=== PATIENT | male | born 1950 | race Caucasian/White ===

== ENCOUNTER 2016-03-01 16:21 | Inpatient (IN) | payer OTHER ==
[~2016-03-01] VITALS: Ht 182.9 cm; Wt 116.5 kg
[2016-03-01 16:57] LABS: BASOPHIL COUNT 0.1 K/uL (0-0.1); EOSINOPHIL (%) 1.9 % (0-5); EOSINOPHIL COUNT 0.3 K/uL (0-0.3); HEMATOCRIT 44.1 % (38.0-50.0); IMMATURE GRANULOCYTE (%) 0.2 % (0.0-0.7); IMMATURE GRANULOCYTE COUNT 0.3 K/uL; LYMPHOCYTE COUNT 1.6 K/uL (1.0-2.8); MCHC 34.7 G/DL (30.0-36.0); MCV 86.5 FL (86-99); MEAN PLAT.VOLUME 8.8 uM^3 (9.0-12.4); MONOCYTE (%) 7.4 % (3-12); NEUTROPHIL COUNT 10.5 K/uL (1.8-6.4); PLATELET COUNT 273 K/uL (156-360); RBC DIS.WIDTH-CV 13.2 % (11.8-14.6); WHITE BLOOD COUNT 13.4 K/uL (4.1-10.2)
[2016-03-01 17:09] LABS: CHLORIDE 99 mEq/L (99-109); POTASSIUM 4.6 mEq/L (3.7-5.4); SODIUM 135 mEq/L (136-147)
[2016-03-01 17:12] LABS: GLUCOSE 310 mg/dL (70-99)
[2016-03-01 17:13] LABS: ANION GAP 12 MEQ/L (2-14)
[2016-03-01 17:14] LABS: TOTAL BILIRUBIN 0.5 mg/dL (0.0-1.0)
[2016-03-01 17:15] LABS: ALKALINE PHOSPHATASE 109 IU/L (3-129); GFR ESTIMATE (CALCULATED) > 59 mL/min/
[2016-03-01 17:16] LABS: UREA NITROGEN (BUN) 10 mg/dL (9-23)
[2016-03-01] MEDS ORDERED: NEOSPORIN EYE D10 ML RIGHT EYE (18:39)
[2016-03-01] MEDS ORDERED: AMOXICILLIN500 MG PO (18:40)
[2016-03-01] MEDS ORDERED: MUCUS RELIEF200 MG PO (18:40)
[2016-03-01] MEDS ORDERED: SIMVASTATIN40 MG PO (18:41)
[2016-03-01] MEDS ORDERED: HUMULIN R100 UNITS/ SC (18:41)
[2016-03-01] MEDS ORDERED: METFORMIN HCL1000 MG PO (18:41)
[2016-03-01] MEDS ORDERED: LOSARTAN POTASS50 MG PO (18:41)
[2016-03-02] VITALS (9 sets, daily range): BP systolic 130–178; BP diastolic 64–91
[2016-03-02 07:19] LABS: Estimated Average Glucose 217 mg/dL (70-123); HEMOGLOBIN A1c (GLYCOHEMOGLOB) 9.2 % HGB (Below 5.7)
[2016-03-03 04:09] VITALS: BP 148/72
[2016-03-03 07:30] LABS: BASOPHIL COUNT 0.1 K/uL (0-0.1); EOSINOPHIL (%) 3.6 % (0-5); EOSINOPHIL COUNT 0.4 K/uL (0-0.3); HEMATOCRIT 44.5 % (38.0-50.0); IMMATURE GRANULOCYTE (%) 0.3 % (0.0-0.7); LYMPHOCYTE COUNT 1.6 K/uL (1.0-2.8); MCH 30.6 PG (29.0-34.0); MCHC 34.6 G/DL (30.0-36.0); MCV 88.3 FL (86-99); MEAN PLAT.VOLUME 9.3 uM^3 (9.0-12.4); NEUTROPHIL (%) 71.8 % (45-76); NEUTROPHIL COUNT 7.9 K/uL (1.8-6.4); PLATELET COUNT 237 K/uL (156-360); RBC DIS.WIDTH-CV 13.5 % (11.8-14.6); RBC DIS.WIDTH-SD 43.6 % (39-53); RED BLOOD COUNT 5.04 M/uL (4.00-5.50)
[2016-03-03 07:56] LABS: ANION GAP 13 MEQ/L (2-14); CHLORIDE 100 MEQ/L (99-109); GFR ESTIMATE (CALCULATED) > 59 mL/min/; GLUCOSE 238 mg/dL (70-99); POTASSIUM 4.1 MEQ/L (3.7-5.4); SAMPLE HEMOLYSIS CHECK 0; SAMPLE ICTERIC CHECK 0; SAMPLE LIPEMIA CHECK 0; SODIUM 140 MEQ/L (136-147); UREA NITROGEN (BUN) 8 mg/dL (9-23)
[2016-03-03 08:22] VITALS: BP 138/70
[2016-03-03 11:46] VITALS: BP 140/70
[2016-03-03 16:32] LABS: POINT-OF-CARE METER ID UU14149397
[2016-03-03 17:20] VITALS: BP 152/80
[2016-03-03 19:53] VITALS: BP 134/70
[2016-03-03 23:30] VITALS: BP 136/72
[2016-03-04 03:58] VITALS: BP 142/80
[2016-03-04 07:28] VITALS: BP 159/84
[2016-03-04 11:49] VITALS: BP 130/76
[2016-03-04 15:51] VITALS: BP 149/80
[2016-03-04 20:01] VITALS: BP 140/70
[2016-03-05 00:11] VITALS: BP 144/84
[2016-03-05 04:28] VITALS: BP 140/70
[2016-03-05 05:31] LABS: BASOPHIL COUNT 0.1 K/uL (0-0.1); EOSINOPHIL (%) 5.1 % (0-5); EOSINOPHIL COUNT 0.5 K/uL (0-0.3); HEMATOCRIT 42.5 % (38.0-50.0); IMMATURE GRANULOCYTE (%) 0.3 % (0.0-0.7); LYMPHOCYTE COUNT 2.6 K/uL (1.0-2.8); MCH 29.5 PG (29.0-34.0); MCHC 33.4 G/DL (30.0-36.0); MCV 88.2 FL (86-99); MEAN PLAT.VOLUME 9.3 uM^3 (9.0-12.4); MONOCYTE (%) 7.7 % (3-12); MONOCYTE COUNT 0.8 K/uL (0-0.8); NEUTROPHIL (%) 61.6 % (45-76); NEUTROPHIL COUNT 6.5 K/uL (1.8-6.4); PLATELET COUNT 244 K/uL (156-360); RBC DIS.WIDTH-CV 13.2 % (11.8-14.6); RBC DIS.WIDTH-SD 42.4 % (39-53); RED BLOOD COUNT 4.82 M/uL (4.00-5.50); WHITE BLOOD COUNT 10.6 K/uL (4.1-10.2)
[2016-03-05 06:45] LABS: ANION GAP 14 MEQ/L (2-14); CHLORIDE 99 MEQ/L (99-109); GFR ESTIMATE (CALCULATED) > 59 mL/min/; GLUCOSE 257 mg/dL (70-99); POTASSIUM 4.3 MEQ/L (3.7-5.4); SAMPLE HEMOLYSIS CHECK 0; SAMPLE ICTERIC CHECK 0; SAMPLE LIPEMIA CHECK 0; SODIUM 139 MEQ/L (136-147); UREA NITROGEN (BUN) 17 mg/dL (9-23)
[2016-03-05 07:39] VITALS: BP 133/69
[2016-03-05 10:55] VITALS: BP 146/79
[2016-03-05 16:28] VITALS: BP 155/88
[2016-03-05 19:50] VITALS: BP 134/81
[2016-03-06 00:05] VITALS: BP 135/73
[2016-03-06 07:09] LABS: POINT-OF-CARE METER ID UU14149397
[2016-03-06 08:35] VITALS: BP 161/89
[2016-03-06 11:27] LABS: POINT-OF-CARE METER ID UU14149397
[2016-03-06 11:46] VITALS: BP 146/82
[2016-03-06 13:32] LABS: HEMATOCRIT 43.9 % (38.0-50.0); MCH 29.8 PG (29.0-34.0); MCHC 33.5 G/DL (30.0-36.0); MCV 88.9 FL (86-99); MEAN PLAT.VOLUME 9.1 uM^3 (9.0-12.4); PLATELET COUNT 271 K/uL (156-360); RBC DIS.WIDTH-CV 13.4 % (11.8-14.6); RED BLOOD COUNT 4.94 M/uL (4.00-5.50)
[2016-03-06] MEDS ORDERED: KEFLEX500 MG PO (15:14)
[2016-03-06 16:09] LABS: POINT-OF-CARE METER ID UU14149397
[2016-03-06 16:56] VITALS: BP 142/882
== END 2016-03-06 17:58 | DRG 603 ==
LOC: EME 16:21 → 3EAST 03-02 00:16 → EDOF 03-02 00:16 → 3EAST 03-02 00:56
PROVIDERS: Emergency Medicine; Hospitalist; Internal Medicine; Student in an Organized Health Care Education/Training Program
DX: L03.213 Periorbital cellulitis (principal); E11.65 Type 2 diabetes mellitus with hyperglycemia; J44.9 Chronic obstructive pulmonary disease, unspecified; E87.1 Hypo-osmolality and hyponatremia; B35.1 Tinea unguium; I10 Essential (primary) hypertension; F17.210 Nicotine dependence, cigarettes, uncomplicated; E78.5 Hyperlipidemia, unspecified; Z79.84 Long term (current) use of oral hypoglycemic drugs; B95.61 Methicillin susceptible Staphylococcus aureus infection as the cause of diseases classified elsewhere; H01.003 Unspecified blepharitis right eye, unspecified eyelid; J45.909 Unspecified asthma, uncomplicated
CPT/HCPCS: 70481; 80048; 80053; 80202; 82948; 83036; 83605; 85025; 85027; 87040; 87070; 87075; 87077; 87147; 87186; 87205; 99281; 99285; J0690; J0696; J1644; J1815; J2543; J3010; J3370; J7030; J7040; J7050